=== PATIENT | male | born 1995 | race Caucasian/White ===

== ENCOUNTER 2016-07-08 22:37 | Emergency (ER) | payer OTHER ==
[2016-07-08] MEDS ORDERED: DEXAMETHASONE 10 MG/ML VIAL PO STA (23:54)
[2016-07-09] MEDS ORDERED: CHERRY SYRUP 10 ML UDC PO ONE (00:02)
[2016-07-09] MEDS ORDERED: DEXAMETHASONE 10 MG/ML VIAL ONE (00:03)
[2016-07-09] MEDS ORDERED: AZITHROMYCIN 250 MG TABLET PO STA (00:20)
[2016-07-09] MEDS ORDERED: AZITHROMYCIN 250 MG TABLET PO ONE (00:23)
== END 2016-07-09 00:31 | disposition home or self-care (01) ==
DX: H66.001 Acute suppurative otitis media without spontaneous rupture of ear drum, right ear (principal)
CPT/HCPCS: 87070; 87430; 99283; A9270